=== PATIENT | female | born 1945 ===

== ENCOUNTER 2022-06-14 08:59 | Outpatient (CLI) | payer OTHER, SELFPAY ==
[2022-06-14 14:02] LABS: Albumin* 3.8 g/dL (3.3-5.0)
[2022-06-14 14:05] LABS: Cholesterol* 243 mg/dL (90-199); Total Protein* 6.5 g/dL (6.0-8.3)
[2022-06-14 14:06] LABS: Alanine Aminotransferase* 15 U/L (4-35); Alkaline Phosphatase* 68 U/L (40-150); Aspartate Amino Transferase* 19 U/L (12-35); Bilirubin Direct* 0.1 mg/dL (0.0-0.5); Bilirubin Total* 0.3 mg/dL (0.1-1.5); HDL Cholesterol* 51 mg/dL (>=50); LDL Cholesterol Calculated 170 mg/dL (<100); Triglycerides* 111 mg/dL (40-149)
== END 2022-06-14 09:00 | disposition home or self-care (01) ==
PROVIDERS: PCP Family Medicine; Visit Provider Family Medicine
DX: E78.5 Hyperlipidemia, unspecified (principal)
CPT/HCPCS: 80061; 80076

== ENCOUNTER 2022-09-14 08:21 | Outpatient (CLI) | payer OTHER, SELFPAY ==
[2022-09-14 14:14] LABS: TSH With Reflex to FT4* 0.725 uIU/mL (0.270-4.200)
[2022-09-14 14:33] LABS: Vitamin B12* 255 pg/mL (243-894)
[2022-09-14 16:14] LABS: Creatinine Urine 123.9 mg/dL
[2022-09-14 16:18] LABS: Microalbumin Creatinine Ratio 10 mg/g (0-30); Microalbumin Urine 2 mg/dL
== END 2022-09-14 08:22 | disposition home or self-care (01) ==
PROVIDERS: PCP Family Medicine; Visit Provider Family Medicine
DX: E03.9 Hypothyroidism, unspecified (principal); E11.9 Type 2 diabetes mellitus without complications; I10 Essential (primary) hypertension; R53.83 Other fatigue
CPT/HCPCS: 82043; 82570; 82607; 84443

== ENCOUNTER 2023-03-14 08:34 | Outpatient (CLI) | payer OTHER, SELFPAY | END 2023-03-14 08:35 | disposition home or self-care (01) | LOC: NFLDREF 03-16 05:57 | PROVIDERS: PCP Family Medicine; Referring Provider Family Medicine; Visit Provider Family Medicine | DX: E03.9 Hypothyroidism, unspecified (principal); E11.9 Type 2 diabetes mellitus without complications; E66.01 Morbid (severe) obesity due to excess calories; I10 Essential (primary) hypertension; R53.83 Other fatigue; E78.5 Hyperlipidemia, unspecified | CPT/HCPCS: 80053; 80061; 82043; 82570; 82607; 84439; 84443 ==

== ENCOUNTER 2023-03-23 07:30 | Outpatient (RCR) | payer OTHER, SELFPAY ==
--- NOTE | 2023-03-15 09:29 | PT.OPE ---
[facility] Start: 06/27/22 07:52 Freq: Status: Active Protocol: Document 03/14/23 13:54 BMS (Rec: 03/14/23 14:00 BMS [id number]) E-signed By Fallon Swartz PT Physical Therapy Outpatient Evaluation Insurance Information Recert Due Date 06/11/23 Insurance Name [employer],Other; See Comments Insurance Information/Comments [facility] Provider Fax Number internal Medical Diagnosis R42 - Dizziness and giddiness Treating Diagnosis R42 - Vertigo H81.11 - BPPV, Right ear Referring MD Batsheva Pizarro DO Subjective Subjective started a week ago Monday. my provider says I should just be able to call and get into therapy without having to wait to see her. (discussed hospital policy requiring provider referral since has been > 90 days since last session ~ 8 months ago). started w nausea this time, then got dizzy later. had a lot of nausea and vomiting for a day in August when I couldn't get my antinausea pill in fast enough then got dizzy with that. worst wtih looking up, bending forward, rolling from R to L feel a woosh. feel unsteady at night -feel like am staggering when I walk Pain Comments neck tight and sore Current Work Status Retired Precautions Treatment Precautions/Contraindications caregiver for sameera Evans. E11.9 - Type 2 diabetes mellitus without complications (ICD-10) Hypothyroidism (Acute) E03.9 - Hypothyroidism, unspecified (ICD-10) Hypertension (Acute) I10 - Essential (primary) hypertension (ICD-10) Gastroesophageal reflux disease (Acute) K21.9 - Gastro-esophageal reflux disease without esophagitis (ICD-10) Benign paroxysmal positional vertigo (Acute) H81.10 - Benign paroxysmal vertigo, unspecified ear (ICD- 10) Hyperlipidemia (Acute) E78.5 - Hyperlipidemia, unspecified (ICD-10) Objective Range of Motion cervical flex mild loss, ext mild loss, B rotation 50% expected. Strength cervical flex, ext and B SB in neutral spine 5/5 Palpation tenderness and trigger points in UT, levator. 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 refuses assistive device. unable to maintain tandem stance L post. Posture head forward, wider base. low guard Other/Pertinent Objective very + Searchlight hallpike but in ~ 20 degrees cervical flex. (-) B horizontal. L not tested due to extremely + R and limited tolerance this date. Functional Test Performed & Score DHI 32 see scanned Assessment Assessment/Impression Patient is extremely pleasant 78 yo female referred for positional vertigo. Her story is somewhat convoluted. She does have hx of positional vertigo for which she has been successfully treated here in our clinic several episodes in the past. Today states primary current symptoms started last Monday - states she felt nausea and 'like my diaphragm was going up' then became quite dizzy. Reports having had vertigo with bed mobility as well as standing up, looking up, bending forward. She presents today with significant R posterior canalithiasis, poss L and ant canal as well. Did not tolerate further testing for L post, though B horizontal appeared to be negative this date. Patient reports another incident in August when she was at a social gathering and became quite nauseous, did excuse herself to take an antinausea pill but was too late and vomited the whole day and was then dizzy. This did resolve. She reports tinnitus constant as well that worsens with vertigo. She does also present with loss of ROM in neck and pain there as well that limits tolerance of necessary positions for canalith repositioning. She states overall symptoms are better than when began 1 week ago. She does also struggle iwth balance christine at night with gait - feels she is staggering but states she does not need to use gait aid. She does still substitute teach at middle school but feels she may not continue this after this year as she is 78. Patient is appropriate for skilled physical therapy for vestibular dysfunction, balance challenges, abnormal gait and positional vertigo. Primary Functional Limitations vertigo with rolling over in bed, looking up, bending forward. imbalance, altered gait Plan of Care Rehabilitation Potential Good Rehabilitation Potential Comments has responded well to previous treatment plans for positional vertigo Physical Therapy Goals STG - To be completed in 2-3 weeks: 1. Pt will report reduction in dizziness frequency and intensity so that they may return to normal bed mobility with minimal bouts of dizziness. LTG - To be completed in 8-12 weeks: 1. Pt will report ability to roll over in bed to either side without onset of dizziness so that they may roll over in bed without waking. 2. Patient report resolution of whoosh feeling with supine/sit/stand for decreased risk of falls from vestibular symptoms 3. Pt will report absence of dizziness with all positional testing so that they may perform all activities with similar head/neck positions including rolling over in bed, washing hair in shower without onset of dizziness. Coordination/Communication With Referral Source Treatment Plan/Direct Interventions Canalith Repositioning,Gait Training,Manual Therapy, Neuromuscular Re-ed,Self-Care/ Home Management,Therapeutic Activities,Therapeutic Exercises Frequency/Duration 1x/ week x 3-8 weeks Patient Will Be Discharged From Therapy Completion of LTG(s),Skills Plateau,Independent w/HEP, Independently Progressing Evaluation Billing Untimed Code Treatment Minutes 30 Complexity Moderate Certification Information Initial Certification Date 03/14/23 Ending Certification Date 06/11/23 Provider Signature Shows Agreement With POC & Medical Necessity Physician Signature & Date Requested Please Sign/Date Here Physician Comment/Change : Physician NPI Number #[id number]
== END 2023-07-04 10:22 | disposition home or self-care (01) ==
PROVIDERS: PCP Family Medicine; Visit Provider Family Medicine
DX: H81.13 Benign paroxysmal vertigo, bilateral (principal); R26.89 Other abnormalities of gait and mobility; Z51.89 Encounter for other specified aftercare
CPT/HCPCS: 97140; 97161; 97162

== ENCOUNTER 2023-06-14 14:29 | Outpatient (CLI) | payer OTHER, SELFPAY ==
--- NOTE | 2023-06-14 14:40 | CRLHL7_ITS ---
For Patients: As a result of the Century Cures Act, medical imaging exams and procedure reports are released immediately into your electronic medical record. You may view this report before your referring provider. If you have questions, please contact your health care provider. BILATERAL SCREENING MAMMOGRAM WITH COMPUTER-AIDED DETECTION AND TOMOSYNTHESIS TECHNIQUE: CC and MLO views were obtained. These mammographic images have been obtained using full-field digital technique. These mammographic images were interpreted with the benefit of computer-aided detection. Breast Tomosynthesis was used in this interpretation. COMPARISON FILM: 06/01/21, 01/30/19, 04/19/17 FINDINGS: There are scattered areas of fibroglandular density IMPRESSION: There is no radiographic evidence for malignancy. ASSESSMENT: BI-RADS Category 2: Benign RECOMMENDATION: Routine screening mammogram in 1 year. A lay language report of this examination will be provided to the patient. Bj Clarke M.D. Diagnostic Radiologist [email or web address] LUÍS/[email or web address] Transcribed: 4:46 p.mEsthela dacosta/Dictated by: Bj Clarke MD @ 06/15/2023 11:17:00 AM (Electronically Signed)
== END 2023-06-14 14:30 | disposition home or self-care (01) ==
LOC: MAMMO 14:30
PROVIDERS: PCP Family Medicine; Visit Provider Family Medicine
DX: Z12.31 Encounter for screening mammogram for malignant neoplasm of breast (principal)
CPT/HCPCS: 77063; 77067

== ENCOUNTER 2024-08-16 10:30 | Outpatient (CLI) | payer OTHER, SELFPAY | END 2024-08-16 10:31 | disposition home or self-care (01) | PROVIDERS: Visit Provider Family Medicine | DX: E03.9 Hypothyroidism, unspecified (principal); I10 Essential (primary) hypertension; E78.5 Hyperlipidemia, unspecified; E11.9 Type 2 diabetes mellitus without complications; N39.0 Urinary tract infection, site not specified; Z78.0 Asymptomatic menopausal state | CPT/HCPCS: 80053; 80061; 82043; 82570; 84439; 84443; 87086 ==

== ENCOUNTER 2024-09-27 14:28 | Outpatient (CLI) | payer OTHER, SELFPAY | END 2024-09-27 14:29 | disposition home or self-care (01) | PROVIDERS: PCP Family Medicine; Visit Provider Family Medicine | DX: E03.9 Hypothyroidism, unspecified (principal); R53.83 Other fatigue; E11.9 Type 2 diabetes mellitus without complications; I10 Essential (primary) hypertension | CPT/HCPCS: 84443 ==

== ENCOUNTER 2024-11-08 14:10 | Outpatient (CLI) | payer OTHER, SELFPAY | END 2024-11-08 14:11 | disposition home or self-care (01) | LOC: NFLDREF 11-15 00:44 | PROVIDERS: PCP Family Medicine; Referring Provider Family Medicine; Visit Provider Family Medicine | DX: E03.9 Hypothyroidism, unspecified (principal) | CPT/HCPCS: 84443 ==

== ENCOUNTER 2024-11-14 15:00 | Outpatient (CLI) | payer OTHER, SELFPAY ==
--- NOTE | 2024-11-14 15:00 | CRLHL7_ITS ---
For Patients: As a result of the Century Cures Act, medical imaging exams and procedure reports are released immediately into your electronic medical record. You may view this report before your referring provider. If you have questions, please contact your health care provider. XR DXA Bone Mineral Density (BMD) Reason for exam: Asymptomatic menopausal state. Current height (in): 64. Weight (lb): 189. Menopause age: 48. Ethnicity: White. 1. Have you had a previous hip or vertebral fracture? No. 2. Have you had any fractures during your adult life which did not result from significant trauma (e.g., auto accident)? No. 3. Did either of your parents have a hip fracture? No. 4. Do you smoke? No. 5. Have you ever taken Glucocorticoids? Yes. 6. Do you have rheumatoid arthritis? No. 7. Do you have secondary osteoporosis? No. 8. Do you drink 3 or more alcoholic drinks per day? No. 9. Are you being treated for osteoporosis? No. 10. Have you ever taken any of the following medications: Actonel, Evista, Fosamax, Miacalcin, Reclast, Boniva, Forteo, HRT (i.e., estrogen/hormone therapy), Protelos, Prolia, Vitamin D, Calcium, other ??? please specify. ANSWER: Yes, vitamin D and HRT (i.e., estrogen/hormone therapy). 11. Do you have any of the following medical conditions: Anorexia or bulimia, asthma or emphysema, end stage renal disease, hyperparathyroidism, any seizure disorders, cancer, inflammatory bowel diseases, hysterectomy, other ??? please specify. ANSWER: No. 12. What was your maximum height (inches)? 63. 13. Do you perform weight bearing exercise regularly? No. 14. Do you regularly consume dairy products? Yes. 15. Do you drink caffeinated beverages? No. 16. At what age did your period start? 11. 17. Are you premenopausal? No. 18. How many full-term pregnancies have you had? 2. 19. Have you ever missed your period for more than 6 months in a row (not including or menopause)? No. TECHNIQUE: Bone mineral density study was performed using the [employer]. FINDINGS: The results of the study expressed as bone mineral density (BMD) are as follows: Lumbar spine L1 to L4: BMD: 1.093 g/cm2. T-score: 0.4. Z-score: 3.2 Neck Left: BMD: 0.715 g/cm2. T-score: -1.2. Z-score: 1.2 Right: BMD: 0.723 g/cm2. T-score: -1.1. Z-score: 1.2 Total Left: BMD: 0.898 g/cm2. T-score: -0.4. Z-score: 1.8 Right: BMD: 0.902 g/cm2. T-score: -0.3. Z-score: 1.8 IMPRESSION: Osteopenia. *Comparison exams done prior to 04/2020 were performed on different unit, [employer]. FRAX 10-year Fracture Risk Major Osteoporotic Fracture: 18% Hip Fracture: 4.5% Reported Risk Factors: [place] () Neck BMD=0.715, BMI=32.4, glucocorticoids. Bj Clarke M.D. Diagnostic Radiologist [email or web address] LUÍS/[email or web address] dacosta/Dictated by: Bj Clarke MD @ 11/15/2024 9:35:00 AM (Electronically Signed)
--- NOTE | 2024-11-14 15:40 | CRLHL7_ITS ---
For Patients: As a result of the Century Cures Act, medical imaging exams and procedure reports are released immediately into your electronic medical record. You may view this report before your referring provider. If you have questions, please contact your health care provider. BILATERAL SCREENING MAMMOGRAM WITH COMPUTER-AIDED DETECTION AND TOMOSYNTHESIS TECHNIQUE: CC and MLO views were obtained. These mammographic images have been obtained using full-field digital technique. These mammographic images were interpreted with the benefit of computer-aided detection. Breast tomosynthesis was used in this interpretation. COMPARISON FILM: 06/14/23, 06/01/21, 04/19/17. FINDINGS: There are scattered areas of fibroglandular density. IMPRESSION: There is no radiographic evidence for malignancy. ASSESSMENT: BI-RADS Category 1: Negative RECOMMENDATION: Routine screening mammogram in 1 year. A lay language report of this examination will be provided to the patient. BJ PIÑA M.D. Diagnostic Radiologist [email or web address] Transcribed: 1:[address]/Dictated by: Bj Piña MD @ 11/15/2024 10:33:00 AM (Electronically Signed)
== END 2024-11-14 15:01 | disposition home or self-care (01) ==
LOC: RAD 15:02
PROVIDERS: PCP Family Medicine; Visit Provider Family Medicine
DX: Z12.31 Encounter for screening mammogram for malignant neoplasm of breast (principal); Z78.0 Asymptomatic menopausal state; M85.88 Other specified disorders of bone density and structure, other site
CPT/HCPCS: 77063; 77067; 77080

== ENCOUNTER 2025-01-20 11:04 | Outpatient (CLI) | payer OTHER, SELFPAY | END 2025-01-20 11:05 | disposition home or self-care (01) | PROVIDERS: PCP Family Medicine; Visit Provider Family Medicine | DX: E78.5 Hyperlipidemia, unspecified (principal); E03.9 Hypothyroidism, unspecified; E11.65 Type 2 diabetes mellitus with hyperglycemia; Z79.85 Long-term (current) use of injectable non-insulin antidiabetic drugs | CPT/HCPCS: 80061; 82043; 82570; 84439; 84443 ==

== ENCOUNTER 2025-07-18 10:07 | Outpatient (CLI) | payer OTHER, SELFPAY | END 2025-07-18 10:08 | disposition home or self-care (01) | PROVIDERS: PCP Family Medicine; Visit Provider Family Medicine | DX: E03.9 Hypothyroidism, unspecified (principal); E11.9 Type 2 diabetes mellitus without complications; E87.6 Hypokalemia; I10 Essential (primary) hypertension; R53.83 Other fatigue | CPT/HCPCS: 82306; 82607; 84443 ==